=== PATIENT | male | born 1975 | race Caucasian/White ===

== ENCOUNTER → 2018-04-23 10:29 | Outpatient (CLI) | payer OTHER, SELFPAY ==
[2018-04-23 12:28] LABS: Alanine Aminotransferase 41 IU/L (21-72); Albumin 4.8 g/dL (3.5-5.0); Albumin Globulin Ratio 1.5 (1.0-2.8); Alkaline Phosphatase 46 U/L (38-126); Aspartate Aminotransferase 29 IU/L (17-59); Bilirubin Total 0.5 mg/dL (0.2-1.3); Blood Urea Nitrogen 21 mg/dL (9-20); Calcium 9.6 mg/dL (8.4-10.2); Carbon Dioxide 29 mmol/L (22-32); Chloride 102 mmol/L (98-107); Cholesterol 199 mg/dL (140-199); Estimated Glomerular Filt Rate > 60.0 mL/min (>60); Globulin 3.1 g/dL (1.7-4.1); Glucose 95 mg/dL (70-100); HDL Cholesterol 50 mg/dL (40-60); HEMOLYSIS < 15 (0-50); LDL Cholesterol Calculated 127 mg/dL (<100); Potassium 4.6 mmol/L (3.4-5.1); Sodium 141 mmol/L (137-145); Total Protein 7.9 g/dL (6.3-8.2); Triglycerides 111 mg/dL (35-150)
[2018-04-23 12:45] LABS: Add Manual Diff / Slide Review NO; Basophils Absolute Auto 100 /uL (0-100); Basophils Percent Auto 0.8 % (0-2); Eosinophils Absolute Auto 100 /uL (0-450); Eosinophils Percent Auto 1.8 % (2-4); Hematocrit 45.1 % (41-53); Hemoglobin 15.4 g/dL (13.5-17.5); Lymphocytes Absolute Auto 2000 /uL (1100-4500); Lymphocytes Percent Auto 27.5 % (25-40); Mean Corpuscular HGB Conc 34.2 % (30-36); Mean Corpuscular Hemoglobin 29.2 PG (26-34); Mean Corpuscular Volume 85.3 fL (80-100); Monocytes Absolute Auto 600 /uL (0-900); Monocytes Percent Auto 8.5 % (3-14); Neutrophils Absolute Auto 4600 /uL (1500-7000); Neutrophils Percent Auto 61.4 % (50-75); Platelet Count 242 X10^3/uL (150-400); Red Blood Cell Count 5.29 X10^6/uL (4.5-5.9); Red Cell Distribution Width 12.9 % (11.6-14.8); White Blood Cell Count 7.4 X10^3/uL (4.5-11.0)
[2018-04-23 12:55] LABS: Thyroid Stimulating Hormone 1.09 uIU/mL (0.47-4.68)
== END ==
PROVIDERS: PCP Family Medicine; Visit Provider Family Medicine
DX: R03.0 Elevated blood-pressure reading, without diagnosis of hypertension (principal); R89.9 Unspecified abnormal finding in specimens from other organs, systems and tissues; Z13.220 Encounter for screening for lipoid disorders; Z13.29 Encounter for screening for other suspected endocrine disorder
CPT/HCPCS: 36415; 80053; 80061; 84443; 85025

== ENCOUNTER → 2018-05-24 10:48 | Outpatient (CLI) | payer OTHER, SELFPAY ==
[2018-05-24 11:33] LABS: Erythrocyte Sedimentation Rate 2 MM/HR (0-15)
[2018-05-24 12:13] LABS: C-Reactive Protein Quant < 0.5 mg/dL (<1.0); Rheumatoid Factor < 8.6 IU/mL (<12.0); Uric Acid 6.9 mg/dL (3.5-8.5)
[2018-05-24 12:40] LABS: Prostate Specific Antigen Scrn 0.707 ng/mL (0.1-4.0)
[2018-05-26 22:19] LABS: ANA Screen NEGATIVE (Negative); DNA Antibody Crithidia IFA NEGATIVE (Negative); Rheumatoid Factor <14 IU/mL; Sjogren Antiboday SS-A <1.0 NEG AI (<1.0 NEGATIVE); Sjogren Antiboday SS-B <1.0 NEG AI (<1.0 NEGATIVE); Sm Antibody <1.0 NEG AI (<1.0 NEGATIVE); Sm/RNP Antibody <1.0 NEG AI (<1.0 NEGATIVE)
== END ==
PROVIDERS: PCP Family Medicine; Visit Provider Family Medicine
DX: M19.039 Primary osteoarthritis, unspecified wrist (principal); M19.049 Primary osteoarthritis, unspecified hand; M25.519 Pain in unspecified shoulder; Z12.5 Encounter for screening for malignant neoplasm of prostate
CPT/HCPCS: 36415; 84550; 85651; 86038; 86140; 86430; G0103

== ENCOUNTER → 2019-09-11 13:59 | Outpatient (CLI) | payer OTHER, SELFPAY ==
--- NOTE | 2019-09-11 14:02 | DI.RAD.S_ITS ---
PROCEDURE: XR WRIST LT 2V INDICATIONS: Injury to left hand TECHNIQUE: 2 views of the wrist were acquired. COMPARISON: [facility], CR, XR HAND LT 2V, 09/11/2019, 13:57. FINDINGS: Bones: No fractures or dislocations. No suspicious bony lesions. Scaphoid view: Not obtained of the scaphoid visualized appears normal Soft tissues: No suspicious soft tissue calcifications. A metallic foreign body seen overlying the dorsal margin of the base of the first metacarpal bone, when images from the left hand plain film study also obtained in a are taken into account. IMPRESSION: Small 2 x 2.5 mm metallic foreign body as discussed, no new abnormality found. Dictated by: Julio Negron M.D. on 09/11/2019 at 16:38 Approved by: Julio Negron M.D. on 09/11/2019 at 16:39
--- NOTE | 2019-09-11 14:02 | DI.RAD.S_ITS ---
PROCEDURE: XR HAND LT 2V INDICATIONS: Injury to left hand, penetrating metal fragment TECHNIQUE: 3 views of the hand(s) acquired. COMPARISON: None. FINDINGS: Bones: No fractures or dislocations. Carpal bones are normally aligned. No suspicious bony lesions. Soft tissues: No suspicious soft tissue calcifications. There is a metallic foreign body within the soft tissues dorsal to the proximal aspect of the first metacarpal bone. This measures only approximately 2 x 2.5 mm. IMPRESSION: Penetrating metal fragment in the soft tissues without osseous injury, as over the dorsal aspect of the base of the first metacarpal. Dictated by: Julio Negron M.D. on 09/11/2019 at 16:32 Approved by: Julio Negron M.D. on 09/11/2019 at 16:37
== END ==
PROVIDERS: PCP Family Medicine; Referring Provider Family Medicine; Visit Provider Family Medicine
DX: S69.92XA Unspecified injury of left wrist, hand and finger(s), initial encounter (principal); M79.5 Residual foreign body in soft tissue; X58.XXXA Exposure to other specified factors, initial encounter; W45.8XXA Other foreign body or object entering through skin, initial encounter
CPT/HCPCS: 73100; 73120

== ENCOUNTER → 2019-10-09 10:41 | Outpatient (CLI) | payer OTHER, SELFPAY ==
[2019-10-09 11:17] LABS: Add Manual Diff / Slide Review NO; Basophils Absolute Auto 100 /uL (0-100); Basophils Percent Auto 0.9 % (0-2); Eosinophils Absolute Auto 200 /uL (0-450); Eosinophils Percent Auto 4.3 % (2-4); Hematocrit 43.9 % (41-53); Hemoglobin 14.9 g/dL (13.5-17.5); Lymphocytes Absolute Auto 1700 /uL (1100-4500); Lymphocytes Percent Auto 28.7 % (25-40); Mean Corpuscular HGB Conc 34.1 % (30-36); Mean Corpuscular Hemoglobin 29.4 PG (26-34); Mean Corpuscular Volume 86.3 fL (80-100); Monocytes Absolute Auto 400 /uL (0-900); Monocytes Percent Auto 7.4 % (3-14); Neutrophils Absolute Auto 3400 /uL (1500-7000); Neutrophils Percent Auto 58.7 % (50-75); Platelet Count 209 X10^3/uL (150-400); Red Blood Cell Count 5.08 X10^6/uL (4.5-5.9); White Blood Cell Count 5.8 X10^3/uL (4.5-11.0)
[2019-10-09 11:43] LABS: Alanine Aminotransferase 30 IU/L (<50); Albumin 4.5 g/dL (3.5-5.0); Albumin Globulin Ratio 1.8 (1.0-2.8); Alkaline Phosphatase 37 U/L (38-126); Aspartate Aminotransferase 25 IU/L (17-59); BUN Creatinine Ratio 13.5 (6-22); Bilirubin Total 0.7 mg/dL (0.2-1.3); Blood Urea Nitrogen 13 mg/dL (9-20); Calcium 9.8 mg/dL (8.4-10.2); Carbon Dioxide 30 mmol/L (22-32); Chloride 106 mmol/L (98-107); Cholesterol 174 mg/dL (140-199); Estimated Glomerular Filt Rate > 60.0 mL/min (>60); Globulin 2.5 g/dL (1.7-4.1); Glucose 101 mg/dL (70-100); HDL Cholesterol 52 mg/dL (40-60); HEMOLYSIS < 15 (0-50); LDL Cholesterol Calculated 100 mg/dL (<100); Potassium 4.5 mmol/L (3.4-5.1); Sodium 140 mmol/L (137-145); Triglycerides 109 mg/dL (35-150)
[2019-10-09 12:08] LABS: Prostate Specific Antigen Scrn 1.55 ng/mL (0.1-4.0)
== END ==
PROVIDERS: PCP Family Medicine; Referring Provider Family Medicine; Visit Provider Family Medicine
DX: K21.9 Gastro-esophageal reflux disease without esophagitis (principal); Z12.5 Encounter for screening for malignant neoplasm of prostate
CPT/HCPCS: 36415; 80053; 80061; 85025; G0103